=== PATIENT | female | born 1945 | race Caucasian/White ===

== ENCOUNTER → 2017-06-06 | Outpatient (CLI) | payer BC ==
[~2017-06-06] MED LIST: ANT25 PO; CHOL100010 PO; GLCSC750600 PO; MECL1TAB40 PO
== END ==
LOC: C.MAMM 15:01
PROVIDERS: ATTEND Family Medicine
DX: M81.0 Age-related osteoporosis without current pathological fracture (principal)

== ENCOUNTER 2017-09-01 13:28 | Emergency (ER) | payer BC ==
[~2017-09-01] VITALS: Ht 168.9 cm; Wt 73.2 kg
[~2017-09-01 13:28] MED LIST changes: +CEPH500T PO
[2017-09-01 13:32] VITALS: Ht 168.9 cm; Wt 73.2 kg
[2017-09-01] MEDS ORDERED: SODIUM CHLORIDE 0.9% 1000ML 1,000 ML IV STA (13:50)
[2017-09-01] MEDS ORDERED: DiphenhydrAMINE HCL 50 MG/ML VIAL IV STA (13:50)
--- NOTE | 2017-09-01 13:57 | EMERGENCY ROOM VISIT NOTE ---
ED Visit Note First contact with patient: 13:40 I have seen and examined this patient with Linnea Caal and generally agree with the treatment plan as discussed. Problem List Medical Problems: (1) Benign paroxysmal positional vertigo Status: Chronic (2) Epistaxis Status: Resolved (3) Facial contusion Status: Resolved (4) Facial contusion Status: Resolved (5) Laceration of finger of left hand Status: Resolved (6) Laceration of nose Status: Resolved (7) Nasal contusion Status: Resolved (8) Vertigo Status: Resolved Surgical Problems: (1) S/P cholecystectomy Status: Resolved Current/Historical Medications Scheduled Cholecalciferol (Vitamin D), 1,000 INTER.UNIT PO DAILY Glucosamine-Chondroitin (Glucosamine/Chondroitin), 2 CAP PO DAILY Scheduled PRN Meclizine HCl (Meclizine HCl), 1-2 TAB PO Q6 PRN for Dizziness or Vertigo Meclizine HCl (Meclizine HCl), 12.5-25 MG PO Q6H PRN for Dizziness or Vertigo Allergies Coded Allergies: Dust (Verified Allergy, Unknown, `, 10/16/16) Sulfa Drugs (Verified Allergy, Unknown, 10/16/16) Vital Signs Date Time Temp Pulse Resp B/P (MAP) Pulse Ox O2 Delivery O2 Flow Rate FiO2 09/01/17 13:32 36.6 73 18 148/83 99 Room Air Laboratory Results Test 09/01/17 13:50 Departure Information Referrals No Doctor, Assigned (PCP) Patient Instructions My [facility]
[2017-09-01] MEDS ORDERED: CHOL2000 PO (14:11)
[2017-09-01] MEDS ORDERED: ASPI81TA28 PO (14:11)
[2017-09-01 14:22] VITALS: O2SAT 99
[2017-09-01 14:28] LABS: BASO % 0.2 %; BASO ABS # 0.01 K/uL (0-0.2); COMPLETE YES; EOS % 2.9 %; HEMATOCRIT 41.1 % (37-47); IG% 0.2 %; LYMPH % 24.8 %; LYMPH ABS # 1.35 K/uL (1.2-3.4); MEAN CELL VOLUME 94.3 fL (80-100); MEAN CORPUSCULAR HEMOGLOBIN 31.7 pg (25-34); MEAN CORPUSCULAR HGB CONC 33.6 g/dl (32-36); MEAN PLATELET VOLUME 12.1 fL (7.4-10.4); MONO % 7.5 %; NEUT % 64.4 %; PLATELET COUNT 157 K/uL (130-400); RED BLOOD COUNT 4.36 M/uL (4.2-5.4); WHITE BLOOD COUNT 5.44 K/uL (4.8-10.8)
[2017-09-01 14:36] LABS: BLOOD UREA NITROGEN 11 mg/dl (7-18); BUN/CREATININE RATIO 13.9 (10-20); CALCIUM 8.8 mg/dl (8.5-10.1); CARBON DIOXIDE 30 mmol/L (21-32); CHLORIDE 106 mmol/L (98-107); CREATININE 0.77 mg/dl (0.60-1.20); GLUCOSE 90 mg/dl (70-99); POTASSIUM 4.4 mmol/L (3.5-5.1); SODIUM 141 mmol/L (136-145)
[2017-09-01 14:37] LABS: C-REACTIVE PROTEIN < 0.29 mg/dl (0-0.29)
--- NOTE | 2017-09-01 14:43 | DIAGNOSTIC IMAGING REPORT ---
LEFT WRIST 4 VIEWS HISTORY: Left wrist swelling. cellulitis COMPARISON: None. FINDINGS: There is no fracture or dislocation. Dorsal soft tissue swelling. The bones are osteopenic. No radiopaque foreign bodies. No bony destruction to suggest osteomyelitis. IMPRESSION: Dorsal soft tissue swelling. No underlying bony destruction. Electronically signed by: Marvin Woodson M.D. 09/01/2017 2:42 PM Dictated Date/Time: 09/01/2017 2:40 PM
--- NOTE | 2017-09-01 14:50 | EMERGENCY ROOM VISIT NOTE ---
History First contact with patient: 13:40 Chief Complaint: SWELLING TO EXTREMITY Stated Complaint: SWELLING TO LEFT HAND History of Present Illness The patient is a 72 year old female who presents to the Emergency Room with complaints of left wrist redness, swelling, mild pain, and itching that started 2 days ago. Patient states about 2 weeks ago that she got a small burn on the top of her wrist. She states the burn formed a small scab that she picked off several days ago, and since that time has noticed some increased redness and irritation around the burn site. 2 days ago she went to an urgent care to be seen, she states that they started her on Keflex and topical bacitracin ointment , which she has been taking. She has had 4 doses of the Keflex. She states shortly after she started using the bacitracin, the area became increasingly red and swollen, and very itchy. She did take some Benadryl last night which seemed to improve her symptoms. She denies any significant pain to the wrist, streaking up the arm, swollen lymph nodes, fevers or chills, nausea or vomiting , loss of appetite, numbness or tingling of the extremity. Review of Systems A complete 10 point review of systems was reviewed with the patient with pertinent positives and negatives as per history of present illness. All else were negative. Past Medical/Surgical History Medical Problems: (1) Benign paroxysmal positional vertigo (2) Epistaxis (3) Facial contusion (4) Facial contusion (5) Laceration of finger of left hand (6) Laceration of nose (7) Nasal contusion (8) Vertigo Surgical Problems: (1) S/P cholecystectomy Family History Cancer Social History Smoking Status: Former Smoker Alcohol Use: occasionally Drug Use: none Marital Status: single Housing Status: lives alone Occupation Status: employed Current/Historical Medications Scheduled Aspirin (Aspirin Ec), 81 MG PO DAILY Cephalexin (Cephalexin), 1 TAB PO TID Cephalexin Monohydrate (Keflex), 500 MG PO QID Cholecalciferol (Vitamin D3), 1 CAP PO DAILY Doxycycline Hyclate (Vibramycin), 100 MG PO BID Gentamicin Sulfate (Topical) (Gentamicin Sulfate), 1 APPLN TOP BID Allergies Coded Allergies: Dust (Verified Allergy, Unknown, `, 09/01/17) Sulfa Drugs (Verified Allergy, Unknown, 09/01/17) Physical Exam Vital Signs Date Time Temp Pulse Resp B/P (MAP) Pulse Ox O2 Delivery O2 Flow Rate FiO2 09/01/17 17:56 36.6 60 16 141/77 100 09/01/17 17:45 60 16 141/77 100 Room Air 09/01/17 15:50 60 16 145/78 100 Room Air 09/01/17 15:21 71 18 141/79 99 Room Air 09/01/17 14:22 99 Room Air 09/01/17 13:32 36.6 73 18 148/83 99 Room Air Physical Exam CONSTITUTIONAL: No acute distress. Well appearing and well nourished. Alert and oriented X 4 with normal affect. HEENT: Normocephalic, atraumatic. Pupils equal, round and reactive to light, EOMI. TMs normal. Pharynx normal. NECK: Supple, full active range of motion without discomfort. RESPIRATORY: Clear to auscultation bilaterally with no wheezing, crackles, rhonchi or stridor. Equal expansion bilaterally. CARDIOVASCULAR: Regular rate and rhythm with no murmurs, rubs or gallops. Normal peripheral perfusion. No edema. GASTROINTESTINAL: Soft, nontender, nondistended. Bowel sounds present in all quadrants. MUSCULOSKELETAL: Full range of motion of all joints without discomfort. INTEGUMENTARY: The left dorsal wrist has a dime-sized circular scab with surrounding erythema, warm to touch, mildly swollen, nontender. No blisters noted. No drainage noted. No rash or other significant dermatologic conditions noted. NEUROLOGIC: Cranial nerves II-XII grossly intact. No focal neurologic deficits noted. Medical Decision & Procedures ER Provider Diagnostic Interpretation: LEFT WRIST 4 VIEWS HISTORY: Left wrist swelling. cellulitis COMPARISON: None. FINDINGS: There is no fracture or dislocation. Dorsal soft tissue swelling. The bones are osteopenic. No radiopaque foreign bodies. No bony destruction to suggest osteomyelitis. IMPRESSION: Dorsal soft tissue swelling. No underlying bony destruction. Laboratory Results 09/01/17 14:10 Red Blood Count 4.36, Mean Corpuscular Volume 94.3, Mean Corpuscular Hemoglobin 31.7, Mean Corpuscular Hemoglobin Concent 33.6, Mean Platelet Volume 12.1, Neutrophils (%) (Auto) 64.4, Lymphocytes (%) (Auto) 24.8, Monocytes (%) (Auto) 7.5, Eosinophils (%) (Auto) 2.9, Basophils (%) (Auto) 0.2, Neutrophils # (Auto) 3.50, Lymphocytes # (Auto) 1.35, Monocytes # (Auto) 0.41, Eosinophils # (Auto) 0.16, Basophils # (Auto) 0.01 09/01/17 14:10 Test 09/01/17 14:10 White Blood Count 5.44 K/uL (4.8-10.8) Red Blood Count 4.36 M/uL (4.2-5.4) Hemoglobin 13.8 g/dL (12.0-16.0) Hematocrit 41.1 % (37-47) Mean Corpuscular Volume 94.3 fL (80-100) Mean Corpuscular Hemoglobin 31.7 pg (25-34) Mean Corpuscular Hemoglobin Concent 33.6 g/dl (32-36) Platelet Count 157 K/uL (130-400) Mean Platelet Volume 12.1 fL (7.4-10.4) Neutrophils (%) (Auto) 64.4 % Lymphocytes (%) (Auto) 24.8 % Monocytes (%) (Auto) 7.5 % Eosinophils (%) (Auto) 2.9 % Basophils (%) (Auto) 0.2 % Neutrophils # (Auto) 3.50 K/uL (1.4-6.5) Lymphocytes # (Auto) 1.35 K/uL (1.2-3.4) Monocytes # (Auto) 0.41 K/uL (0.11-0.59) Eosinophils # (Auto) 0.16 K/uL (0-0.5) Basophils # (Auto) 0.01 K/uL (0-0.2) RDW Standard Deviation 44.1 fL (36.4-46.3) RDW Coefficient of Variation 12.7 % (11.5-14.5) Immature Granulocyte % (Auto) 0.2 % Immature Granulocyte # (Auto) 0.01 K/uL (0.00-0.02) Erythrocyte Sedimentation Rate 23 mm/hr (0-21) Anion Gap 5.0 mmol/L (3-11) Est Creatinine Clear Calc Drug Dose 69.3 ml/min Estimated GFR () 90.0 Estimated GFR (Non- 77.7 BUN/Creatinine Ratio 13.9 (10-20) Calcium Level 8.8 mg/dl (8.5-10.1) C-Reactive Protein < 0.29 mg/dl (0-0.29) Medications Administered Medications (Trade) Dose Ordered Sig/Salas Route Start Time Stop Time Status Last Admin Dose Admin Diphenhydramine HCl (Benadryl Inj) 50 mg NOW STAT IV 09/01/17 13:50 09/01/17 13:56 DC 09/01/17 14:17 50 MG Sodium Chloride 1,000 ml @ 999 mls/hr Q1H1M STAT IV 09/01/17 13:50 09/01/17 14:50 DC 09/01/17 13:50 999 MLS/HR Ceftriaxone Sodium (Rocephin Inj) 1 gm NOW STAT IV 09/01/17 15:40 09/01/17 15:42 DC 09/01/17 15:50 1 GM Doxycycline Hyclate (Vibramycin Cap) 100 mg ONE ONCE PO 09/01/17 15:45 09/01/17 15:46 DC 09/01/17 16:49 100 MG Medical Decision CC: Patient presenting with complaint of left wrist swelling, redness Interpretation of Labs: No leukocytosis, no anemia, no significant joint abnormalities, normal renal function, normal inflammatory markers. Differential Diagnosis: Includes, but not limited to cellulitis, allergic reaction, joint infection, osteomyelitis, among others. Medication Reconciliation: I attest that I have personally reviewed the patient' s current medication list. Vital signs review: I reviewed the patient's vital signs and interpret them as follows: T: Afebrile; BP: Hypertensive; HR: Within normal limits; RR: Within normal limits; Pulse Ox: Within normal limits on room air. Blood pressure screening: The patient was found to have an elevated blood pressure and was referred to their primary doctor for recheck and further treatment. Summary: Patient was evaluated at bedside, history of physical exam performed. Patient is alert and oriented, in no acute distress and very pleasant, resting calmly in the stretcher. There is moderate erythema and induration of the left dorsal wrist that wraps around to the volar aspect of the wrist with a mild streaking appearance. The area is warm to touch, slightly tender. There is no fluctuance. Orders were placed at bedside for labs, IV fluids for hydration, IV Benadryl to address possible allergic reaction, x-ray of the wrist to evaluate for cellulitis and possible underlying osteomyelitis. Patient discussed with Dr. Lopez, who agrees with my assessment and plan. Labs reviewed as above, no acute abnormalities noted. X-ray reviewed, shows soft tissue swelling with no evidence of osteomyelitis. On reassessment after IV Benadryl, there is no significant improvement in the redness or swelling, and I am concerned that this may still represent a developing/spreading cellulitis. The patient was given a dose of IV Rocephin, as well as a dose of PO Bactrim. She was also instructed on increasing her dosing of Keflex to 4 times a day be discharged on Keflex and Bactrim for a full course of 10 days. Patient verbalized understanding of the treatment plan, and was comfortable with discharge home. Patient was instructed to follow closely with her PCP, and was given return precautions should her symptoms worsen, she verbalized understanding. Patient was discharged home in stable condition and ambulatory. Impression Primary Impression: Right forearm cellulitis Departure Information Dispostion Home / Self-Care Condition GOOD Prescriptions Gentamicin Sulfate (Topical) (GENTAMICIN SULFATE) 0.1 % Cre 1 APPLN TOP BID, #30 GM 1 Refill Prov: Linnea Caal CRNP 09/01/17 Doxycycline Hyclate (VIBRAMYCIN) 100 Mg Cap 100 MG PO BID for 10 Days, #19 CAP Prov: Linnea Caal CRNP 09/01/17 Cephalexin Monohydrate (Keflex) 500 Mg Cap 500 MG PO QID, #17 CAP Prov: Linnea Caal CRNP 09/01/17 Referrals Luisa Schaffer M.D. (PCP) Patient Instructions ED Infec Skin Cellulitis, My [facility] Additional Instructions You were seen in the Emergency Department for cellulitis. You have been prescribed Keflex and doxycycline to be taken for 10 days. Both of these medications are antibiotics. Continue the Keflex, taking it FOUR times a day until you have completed the medication. Take the doxycycline twice a day for the full 10 days. Stop these antibiotics and contact a medical provider if you were to develop any significant adverse side effects including: wheezing, shortness of breath, passing out, vomiting, or a diffuse rash. Always take antibiotics as directed and COMPLETE the ENTIRE course regardless of the improvement of your symptoms. You may use the gentamicin ointment applied topically to your wound twice a day. Look for signs of worsening infection of the wound including: increased pain, swelling, foul discharge, streaking, or fevers/chills/feeling ill. If any of these are noticed you should return to the Emergency Department for further assessment and treatment. For pain control, you can use the following [id number] medicines (if >12 yo): - Extra strength (500mg/tab) Tylenol (acetaminophen) 1-2 tabs every 6-8 hours as needed. Do not exceed 6 tablets in a 24 hour period. Avoid taking more than 3 grams (3000 mg) of Tylenol per day. This includes any other sources of acetaminophen you may take on a regular basis. - Regular strength (200 mg/tab) Advil (ibuprofen) 1-2 tabs every 4-6 hours as needed. Do not exceed a dose of 2400 mg per day. Apply warm compresses to the area to help with pain and also to help improve the infection. Follow up with your PCP or the wound clinic in the next few days for recheck, or sooner for worsening symptoms. Return to the emergency department if your symptoms worsen despite treatment course outlined above.
[2017-09-01] MEDS ORDERED: CEFTRIAXONE SOD INJ 1 GM ADDVIAL IV STA (15:40)
[2017-09-01] MEDS ORDERED: DOXY100C PO (15:45)
[2017-09-01] MEDS ORDERED: CEPH500C PO (15:45)
[2017-09-01] MEDS ORDERED: GENT0.1C2 TOP (15:45)
[2017-09-01] MEDS ORDERED: DOXYCYCLINE HYCLATE 100 MG CAP PO ONE (15:45)
[2017-09-01 17:56] VITALS: BP 141/77; PULSE 60; TEMP 36.6; O2SAT 100
== END 2017-09-01 17:57 | disposition home or self-care (01) ==
LOC: C.EDB 13:29 → C.EDA 17:57
DX: L03.113 Cellulitis of right upper limb (principal); Z87.828 Personal history of other (healed) physical injury and trauma; Z90.49 Acquired absence of other specified parts of digestive tract; Z87.891 Personal history of nicotine dependence; Z79.82 Long term (current) use of aspirin; Z79.899 Other long term (current) drug therapy; Z88.2 Allergy status to sulfonamides; Z91.09 Other allergy status, other than to drugs and biological substances; Z80.9 Family history of malignant neoplasm, unspecified

== ENCOUNTER 2017-09-03 09:54 | Emergency (ER) | payer BC ==
[~2017-09-03] VITALS: Ht 167.6 cm; Wt 71.7 kg
[~2017-09-03 09:54] MED LIST changes: -ANT25 PO; +ASPI81TA28 PO; +CEPH500C PO; -CHOL100010 PO; +CHOL2000 PO; +DOXY100C PO; +GENT0.1C2 TOP; -GLCSC750600 PO; -MECL1TAB40 PO
[2017-09-03 10:02] VITALS: TEMP 36.7; Ht 167.6 cm; Wt 71.7 kg
[2017-09-03] MEDS ORDERED: GI COCKTAIL PO STA (10:29)
[2017-09-03] MEDS ORDERED: ONDANSETRON 4MG OD TAB PO STA (10:29)
[2017-09-03] MEDS ORDERED: FAMOTIDINE 20 MG TAB PO ONE (10:30)
--- NOTE | 2017-09-03 10:37 | EMERGENCY ROOM VISIT NOTE ---
History Report prepared by Armaan: Alpa Vega Under the Supervision of: Dr. Rudolph Contreras M.D. First contact with patient: 10:05 Chief Complaint: NAUSEA Stated Complaint: NAUSEA CHILLS Nursing Triage Summary: "my stomach feels in knots and I have nausea. I'm on antibiotics for my hand cellulitis." per pt. History of Present Illness The patient is a 72 year old white female with a past medical history of BPPV who presents to the ED with a cc of nausea beginning in the middle of the night. The patient recently started taking doxycycline and Keflex for left hand cellulitis. She woke up last night with nausea. She did not take her antibiotics this morning. The patient had a small piece of an Cambodian muffin and drank a bottle of Serg water. She thinks that the carbonation in the water helped to alleviate some of her nausea. She had a normal BM this morning. Positive chills. Negative fevers, chest pain, vomiting, diarrhea. Pt denies recent trauma, travel, or camping. Pt denies sick contacts. She did have a flu shot this year. Source of History: patient Onset: last night Position: other (global) Quality: other (nausea) Timing: constant Modifying Factors (Relieving): drinking (carbonated water) Associated Symptoms: + chills, No fevers, No chest pain, No vomiting, No diarrhea Review of Systems See HPI for pertinent positives and negatives. A total of ten systems were reviewed and were otherwise negative. Past Medical & Surgical Medical Problems: (1) Benign paroxysmal positional vertigo (2) Epistaxis (3) Facial contusion (4) Facial contusion (5) Laceration of finger of left hand (6) Laceration of nose (7) Nasal contusion (8) Vertigo Surgical Problems: (1) S/P cholecystectomy Family History Cancer Social History Smoking Status: Former Smoker Alcohol Use: occasionally Drug Use: none Marital Status: single Housing Status: lives alone Occupation Status: employed Current/Historical Medications Scheduled Aspirin (Aspirin Ec), 81 MG PO DAILY Cephalexin Monohydrate (Keflex), 500 MG PO QID Doxycycline Hyclate (Vibramycin), 100 MG PO BID Famotidine (Pepcid), 40 MG PO QD Gentamicin Sulfate (Topical) (Gentamicin Sulfate), 1 APPLN TOP BID Ondasetron Odt (Zofran Odt), 4 MG SL Q6H Allergies Coded Allergies: Bacitracin (Unverified Allergy, Severe, BAD SWELLING OF SKIN, 09/03/17) Neomycin (Unverified Allergy, Severe, BAD SWELLING OF SKIN, 09/03/17) Polymyxin B (Unverified Allergy, Severe, BAD SWELLING OF SKIN, 09/03/17) Dust (Verified Allergy, Unknown, `, 09/03/17) Sulfa Drugs (Verified Allergy, Unknown, 09/03/17) Physical Exam Vital Signs Date Time Temp Pulse Resp B/P (MAP) Pulse Ox O2 Delivery O2 Flow Rate FiO2 09/03/17 11:27 76 20 157/84 100 09/03/17 10:02 36.7 69 18 159/74 97 Room Air Physical Exam GENERAL: Awake, alert, well-appearing, NAD HENT: Normocephalic, atraumatic. EYES: Normal conjunctiva. Sclera non-icteric. NECK: Supple. No nuchal rigidity. FROM. RESPIRATORY: CTAB, no rhonchi, wheezing, crackles CARDIAC: RRR, no MRG ABDOMEN: Soft, NTND, BS+, no CVA TTP MSK: No chest wall TTP, no LE edema. Pt does have a little redness to dorsal aspect of left distal forearm and over wrist and proximal hand, redness is improving from prior lines marked. NEURO: GCS 15, CN 2-12 intact, moves all 4s on command SKIN: No rash or jaundice noted. Medical Decision & Procedures Medications Administered Medications (Trade) Dose Ordered Sig/Salas Route Start Time Stop Time Status Last Admin Dose Admin Famotidine (Pepcid Tab) 20 mg NOW ONCE PO 09/03/17 10:30 09/03/17 10:31 DC 09/03/17 10:45 20 MG Ondansetron HCl (Zofran Odt) 4 mg NOW STAT PO 09/03/17 10:29 09/03/17 10:31 DC 09/03/17 10:44 4 MG Al Hydroxide/Mg Hydroxide (Maalox Susp) 30 ml STK-MED ONCE .ROUTE 09/03/17 10:42 09/03/17 10:43 DC 09/03/17 10:45 30 ML Lidocaine HCl (Viscous Lidocaine 2% Soln) 20 ml STK-MED ONCE .ROUTE 09/03/17 10:42 09/03/17 10:43 DC 09/03/17 10:46 20 ML ECG Indication: nausea Rate (beats per minute): 68 Rhythm: normal sinus Findings: no ectopy, other (T-wave flattening in lead 3; normal intervals; normal axis) Comparison ECG Date: 09/2016 Change: no significant change ED Course 1019: The patient was evaluated in room A10. A complete history and physical exam was performed. 1029: Zofran 4 mg PO, GI cocktail PO 1030: Pepcid 20 mg PO 1125: I reassessed the patient at this time. She is feeling better and resting comfortably. I discussed the results and treatment plan with the patient. I answered all pertaining questions that she had. She expressed understanding and verbalized agreement. The patient will be discharged home. Medical Decision The patient is a 72 year old white female with a past medical history of BPPV who presents to the ED with a cc of nausea beginning in the middle of the night. Differential diagnoses includes medication reaction, peptic ulcer disease, atypical chest pain. Patient was seen and evaluated at the bedside. Patient was complaining of some mild nausea. Patient denies any chest pain or shortness of breath. Patient has no medical problems. Patient was recently started on doxycycline, Keflex, and gentamicin ointment for some left upper extremity cellulitis which is improving. Patient has a fairly benign exam and has no tenderness to palpation in the epigastric or upper abdomen region or lower abdomen region patient has no vomiting. Patient states that she was able to tolerate some water in addition to a part of an Cambodian on this morning. Discussion with the patient we will obtain a screening EKG to ensure this is not atypical chest pain. This is most likely related from her antibiotic use. Patient was given medications and reassessed. Patient was feeling improved and her nausea had resolved. EKG did not show any acute ischemic changes. Less likely ACS or atypical chest pain. His most likely from her antibiotic use. Patient was told that she may take some Zofran as well as Zantac and/or Maalox and Tums. Patient was also told she may try probiotic and/or yogurt. Patient was given strict follow-up, discharge, and return precautions. Patient reported care patient was safely discharged home. Medication Reconcilliation Current Medication List: was personally reviewed by me Blood Pressure Screening Patient's blood pressure: Elevated blood pressure Blood pressure disposition: Elevated BP felt to be situational Impression Primary Impression: Nausea Scribe Attestation The scribe's documentation has been prepared under my direction and personally reviewed by me in its entirety. I confirm that the note above accurately reflects all work, treatment, procedures, and medical decision making performed by me. Departure Information Dispostion Home / Self-Care Prescriptions Ondasetron Odt (ZOFRAN ODT) 4 Mg Tab 4 MG SL Q6H for Nausea, #6 TAB Prov: Rudolph Conterras M.D. 09/03/17 Famotidine (PEPCID) 40 Mg Tab 40 MG PO QD for 30 Days, #30 TAB Prov: Rudolph Contreras M.D. 09/03/17 Referrals Luisa Schaffer M.D. (PCP) Forms HOME CARE DOCUMENTATION FORM, IMPORTANT VISIT INFORMATION Patient Instructions My [facility], Nausea Vomit Control Additional Instructions Please return to the emergency department if you have worsening or recurrent symptoms not amenable to at-home treatment. Please call for a follow-up appointment with her primary care physician. Please take your medications as prescribed. If you have other concerns and/or complaints please feel free to also call your primary care physician's office or return the ED for further evaluation, management, and treatment. You may try Maalox, pepcid, and/or tums. Consider yogurt and/or probiotic while you are taking the antibiotics. You have been examined and treated today on an emergency basis only. This is not a substitute for, or an effort to provide, complete comprehensive medical care. It is impossible to recognize and treat all injuries or illnesses in a single emergency department visit. It is therefore important that you follow up closely with [facility]. Call as soon as possible for an appointment. Thank you for your time and consideration. I look forward to speaking with you again soon. Please don't hesitate to call us if you have any questions.
[2017-09-03] MEDS ORDERED: LIDOCAINE HCL 2% VISC SOLN 20 ML UDC ONE (10:42)
[2017-09-03] MEDS ORDERED: ALUMINUM/MAGNESIUM SUSP 30 ML UDC ONE (10:42)
[2017-09-03 11:27] VITALS: BP 157/84; PULSE 76; O2SAT 100
[2017-09-03] MEDS ORDERED: FAMO40TA6 PO (11:31)
[2017-09-03] MEDS ORDERED: ONDA4TAB10 SL (11:31)
== END 2017-09-03 12:05 | disposition home or self-care (01) ==
LOC: C.EDB 09:55 → C.EDA 12:05
DX: R11.0 Nausea (principal); H81.10 Benign paroxysmal vertigo, unspecified ear; Z90.49 Acquired absence of other specified parts of digestive tract; Z80.9 Family history of malignant neoplasm, unspecified; Z87.891 Personal history of nicotine dependence; Z79.82 Long term (current) use of aspirin; Z79.899 Other long term (current) drug therapy

== ENCOUNTER → 2017-10-29 | Outpatient (CLI) | payer BC ==
[~2017-10-29] MED LIST changes: -CEPH500T PO; -CHOL2000 PO; -DOXY100C PO; +ONDA4TAB10 SL
--- NOTE | 2017-10-29 15:11 | MAMMOGRAPHY REPORT ---
BILATERAL DIGITAL SCREENING MAMMOGRAM WITH CAD: 10/29/2017 CLINICAL HISTORY: Routine screening. Patient has no complaints. TECHNIQUE: Bilateral CC and MLO views were obtained. Current study was also evaluated with a Compute r Aided Detection (CAD) system. COMPARISON: Comparison is made to exams dated: 09/07/2016 mammogram, 09/05/2015 mammogram, 4 mammogram, 09/01/2013 mammogram, 07/29/2012 mammogram, and 07/25/2012 mammogram - [facility]. BREAST COMPOSITION: The tissue of both breasts is almost entirely fatty. FINDINGS: There are scattered stable benign rim and punctate microcalcifications bilaterally. No maksim picious mass, architectural distortion or cluster of suspicious microcalcifications is seen. IMPRESSION: ACR BI-RADS CATEGORY 1: NEGATIVE There is no mammographic evidence of malignancy. A 1 year screening mammogram is recommended. The pa tient will receive written notification of the results. Approximately 10% of breast cancers are not detected with mammography. A negative mammographic report should not delay biopsy if a clinically suggestive mass is present. Merced Ramos M.D. ay/:10/29/2017 14:50:47 Emission Specialist: Siobhan Goodman, [facility] letter sent: Normal 1/2 BI-RADS Code: ACR BI-RADS Category 1: Negative
== END | disposition home or self-care (01) ==
LOC: C.MAMM 13:20
PROVIDERS: ATTEND Family Medicine
DX: Z12.31 Encounter for screening mammogram for malignant neoplasm of breast (principal)

== ENCOUNTER 2017-12-07 09:19 | Emergency (ER) | payer BC ==
[~2017-12-07] VITALS: Ht 167.6 cm; Wt 72.4 kg
[2017-12-07] MEDS ORDERED: OXYMETAZOLINE HCL 0.05% NA SPR 15 ML BTL ONE (09:25)
[2017-12-07 09:28] VITALS: TEMP 36.4; Ht 167.6 cm; Wt 72.4 kg
[2017-12-07] MEDS ORDERED: CHOL1000 PO (09:28)
--- NOTE | 2017-12-07 10:11 | EMERGENCY ROOM VISIT NOTE ---
ED Visit Note First contact with patient: 09:25 CHIEF COMPLAINT: Nosebleed HISTORY OF PRESENT ILLNESS: This is a 72-year-old female who presents to the emergency department with sudden onset of a left-sided nosebleed about 30 minutes ago. She states the bleeding started out the front of her nose, she tilted her head back and then the bleeding started to go down her throat. The bleeding has not stopped with pressure. There was no trauma to the nose. She reports recent URI symptoms of cough, congestion, nasal drainage, and states she has been blowing her nose a lot for the past 2 weeks. She takes a daily baby aspirin, but is not on any other blood thinners. No difficulty breathing, no cough, no headache, no vision changes, no dizziness or syncope, no neck pain or sore throat. REVIEW OF SYSTEMS: A complete 10 point review of systems was reviewed with the patient with pertinent positives and negatives as per history of present illness. All else were negative. PMH: The patient is healthy; there is no significant medical or surgical history. SOCIAL HISTORY: Patient lives at home. PHYSICAL EXAM: Vital Signs: Reviewed Nurse's notes. CONSTITUTIONAL: The patient is sitting upright holding the nose and is somewhat agitated. The patient is alert, oriented, coherent, and cooperative. There is no tachypnea or dyspnea. HEENT: Normocephalic, atraumatic. Pupils equal, round and reactive to light, EOMI. TMs normal. There is bloody drainage noted within the left naris, with a small erosion noted on the anterior septum, but appears to be the source of the bleeding. The right naris is patent and clear. Pharynx is not erythematous or swollen, there is a small amount of bloody drainage noted in the posterior oropharynx, no active draining blood noted. Moist mucous membranes. NECK: Supple, full active range of motion without discomfort. No cervical adenopathy. RESPIRATORY: Clear to auscultation bilaterally with no wheezing, crackles, rhonchi or stridor. Equal expansion bilaterally. CARDIOVASCULAR: Regular rate and rhythm with no murmurs, rubs or gallops. Normal peripheral perfusion. No edema. GASTROINTESTINAL: Soft, nontender, nondistended. No palpable masses or HSM. Bowel sounds present in all quadrants. MUSCULOSKELETAL: Full range of motion of all joints without discomfort. INTEGUMENTARY: No rash or other significant dermatologic conditions noted. NEUROLOGIC: Alert and oriented X 4 with normal affect. Cranial nerves II-XII grossly intact. No focal neurologic deficits noted. Normal strength and sensation in all 4 extremities. Normal speech. EMERGENCY DEPARTMENT COURSE: I examined the patient. Differential diagnosis includes anterior versus posterior epistaxis, nasal trauma, intranasal abrasion/ laceration, nasal foreign body, among others. Patient is alert and oriented, neurologic exam is normal with no focal deficits. Afrin spray was placed in the left naris and nose clamp applied by nursing prior to my assessment of the patient. After removal of the nose clamp, bleeding appears to have stopped. There is a small erosion on the left anterior septum that appears to be the source of the bleeding. I obtained verbal consent from the patient to perform the procedure. Let gel was applied with in the left nostril for anesthetic. Silver nitrate sticks were used to cauterize over the eroded tissue, with good hemostasis achieved. The patient tolerated the procedure well with no known complication. I discussed management and follow-up with the patient, as well as return precautions should her symptoms return or worsen, she verbalized understanding. The patient was discharged home in stable condition and ambulatory. Medication Reconciliation: I attest that I have personally reviewed the patient' s current medication list. Blood pressure screening: The patient was found to have an elevated blood pressure and was referred to their primary doctor for recheck and further treatment. I discussed the patient with Dr. Lopez, who also examined the patient and agrees my assessment and plan. Problem List Medical Problems: (1) Benign paroxysmal positional vertigo Status: Chronic (2) Epistaxis Status: Resolved (3) Facial contusion Status: Resolved (4) Facial contusion Status: Resolved (5) Laceration of finger of left hand Status: Resolved (6) Laceration of nose Status: Resolved (7) Nasal contusion Status: Resolved (8) Vertigo Status: Resolved Surgical Problems: (1) S/P cholecystectomy Status: Resolved Current/Historical Medications No Active Prescriptions or Reported Meds Allergies Coded Allergies: Bacitracin (Unverified Allergy, Severe, BAD SWELLING OF SKIN, 12/07/17) Neomycin (Unverified Allergy, Severe, BAD SWELLING OF SKIN, 12/07/17) Polymyxin B (Unverified Allergy, Severe, BAD SWELLING OF SKIN, 12/07/17) Gramicidin (Verified Allergy, Mild, RASH, 12/07/17) Dust (Verified Allergy, Unknown, `, 12/07/17) Sulfa Drugs (Verified Allergy, Unknown, 12/07/17) Vital Signs Date Time Temp Pulse Resp B/P (MAP) Pulse Ox O2 Delivery O2 Flow Rate FiO2 12/07/17 10:34 73 18 134/71 98 Room Air 12/07/17 09:28 36.4 78 18 147/64 97 Room Air Medications Administered Medications (Trade) Dose Ordered Sig/Salas Route Start Time Stop Time Status Last Admin Dose Admin Oxymetazoline HCl (Afrin 0.05% Nasal [place]) 75 sprays STK-MED ONCE .ROUTE 12/07/17 09:25 12/07/17 09:26 DC 12/07/17 09:25 75 SPRAYS Tetracaine/ Epinephrine/ Lidocaine (L.e.t. Gel 4%/ 1:100/0.5%) 1 ea UD STAT EXT 12/07/17 10:12 12/07/17 10:13 DC 12/07/17 10:26 1 EA Silver Nitrate/ Potassium Nitrate (Silver Nitrate Applicators) 1 appl NOW STAT EXT 12/07/17 10:45 12/07/17 10:46 DC 12/07/17 10:50 1 APPL Departure Information Impression Primary Impression: Epistaxis Dispostion Home / Self-Care Condition GOOD Prescriptions No Active Prescriptions or Reported Meds Referrals Luisa Schaffer M.D. (PCP) Patient Instructions ED Nosebleed, [facility] Additional Instructions You have been treated in the Emergency Department today for your Nose Bleed ( Epistaxis). Do NOT blow your nose for the next few days. This can result in recurrence of your nosebleed. If bleeding does recur, apply immediate direct pressure to your nose or use the provided clamps. Set the timer for 20 MINUTES and do not remove pressure for that full 20 minutes. If you are unable to get the bleeding to stop after a full 20 minutes of holding pressure, you should return to the emergency department for evaluation. You should consider using a humidifier in your room next to your bed to help moisten the air and decrease instances of nosebleeds. You can use hbme-lan-hnjxrit saline nasal sprays to help moisten the nasal mucosa and decrease instances of nosebleeds. As with any trip to the Emergency Department, you should follow-up with your Primary Care Provider from today's visit. Return to the emergency department if your symptoms persist despite treatment plan outlined above or if the following symptoms occur: uncontrollable nosebleed , dizziness, lightheadedness, passing out, severe headache, chest pain, shortness breath, or any other concerns.
[2017-12-07] MEDS ORDERED: LIDOCAINE/EPINEPH/TETRACAINE 1 EA SYR EXT STA (10:12)
[2017-12-07 10:34] VITALS: BP 134/71; PULSE 73; O2SAT 98
[2017-12-07] MEDS ORDERED: SILVER NITR/POTASSIUM NITRATE APPLICATOR EXT STA (10:45)
[2017-12-07] MEDS ORDERED: SILVER NITR/POTASSIUM NITRATE APPLICATOR ONE (10:46)
== END 2017-12-07 11:00 | disposition home or self-care (01) ==
LOC: EDBD 09:19 → C.EDB 09:20
DX: R04.0 Epistaxis (principal); Z79.82 Long term (current) use of aspirin

== ENCOUNTER 2018-06-30 12:14 | Emergency (ER) | payer BC ==
[~2018-06-30] VITALS: Ht 170.2 cm; Wt 70.9 kg
[2018-06-30 12:21] VITALS: TEMP 36.8; Ht 170.2 cm; Wt 70.9 kg
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
[2018-06-30 13:20] VITALS: BP 148/79; PULSE 78; O2SAT 98
== END 2018-06-30 13:20 | disposition home or self-care (01) ==
LOC: C.EDB 12:15 → C.EDD 13:20
DX: T24.122A Burn of first degree of left knee, initial encounter (principal); X12.XXXA Contact with other hot fluids, initial encounter; Z87.891 Personal history of nicotine dependence

== ENCOUNTER 2023-04-16 13:52 | Observation (INO) ==
[2023-04-16] MEDS ORDERED: SODIUM CHLORIDE 0.9% 1000ML 1,000 ML IV ONE (13:53)
[2023-04-16 14:48] LABS: Basophils # (auto) 0.01 K/uL (0-0.2); Basophils % (auto) 0.2 %; Eosinophils # (auto) 0.01 K/uL (0-0.50); Eosinophils % (auto) 0.2 %; Hematocrit (blood only) 41.2 % (37.0-47.0); Hemoglobin 13.5 g/dl (12.0-16.0); Immature Granulocytes # (auto) 0.01 K/uL (0.01-0.20); Immature Granulocytes % (auto) 0.2 %; Lymphocytes # (auto) 0.81 K/uL (1.2-3.4); Lymphocytes % (auto) 12.4 %; Mean Corpuscular Hemoglobin 30.6 pg (25.0-34.0); Mean Corpuscular Hgb Conc 32.8 g/dL (32.0-36.0); Mean Corpuscular Volume 93.4 fL (80.0-100.0); Mean Platelet Volume 12.1 fL (9.4-12.4); Monocytes # (auto) 0.66 K/uL (0.11-0.59); Monocytes % (auto) 10.1 %; Neutrophils # (auto) 5.02 K/uL (1.40-6.50); Neutrophils % (auto) 76.9 %; Platelet Count 137 K/uL (130-400); RDW Coefficient of Variation 11.7 % (11.5-14.5); Red Blood Count 4.41 M/uL (4.20-5.40); White Blood Count 6.52 K/ul (4.8-10.8)
[2023-04-16] MEDS ORDERED: OPTIRAY 320 100ml IV ONE (14:50)
--- NOTE | 2023-04-16 14:53 | Emergency Department Note ---
ED Visit Note Patient is a 77-year-old female who presents ER for above-stated complaint. IV was established blood work was obtained. Repeat abdominal exam was fairly unremarkable. She is still complaining of diffuse burning cramping pain in the mid lower abdomen but has improved since being treated earlier today. I saw the patient earlier today and labs show no significant leukocytosis or anemia. BMP along with LFTs bilirubin was unremarkable. CT of the abdomen pelvis was not obtained bc it was performed Saturday and was unremarkable. Initially reviewed the lipase at that time and thought it was 163 and discharged her. Upon final review of the chart when writing the note I missed read lipase and it was 1630 and consequently called the patient and told her to return to the ER. UA does suggest dehydration. She was given IV fluids. She has entero and rhinovirus. Upon presentation she was given IV fluids. She had already received IV Reglan earlier and said her belly is doing better. She was taken to CAT scan and CAT scan was performed and case was discussed with Dr. Arroyo for further evaluation management treatment. Please refer to my note earlier today for exam findings and complete work-up at that time. Patient denies any alcohol use. She was given IV fluids upon this presentation as well. .
[2023-04-16 15:02] LABS: Albumin Level 3.7 gm/dl (3.4-5.0); Bilirubin,Total 0.4 mg/dl (0.2-1.0); Calcium 8.6 mg/dl (8.6-10.3); Potassium 3.5 mmol/L (3.5-5.1)
--- NOTE | 2023-04-16 15:05 | CT Scan Report ---
CT SCAN OF THE ABDOMEN AND PELVIS WITH IV CONTRAST CLINICAL HISTORY: Generalized abdominal pain. Nausea and diarrhea. COMPARISON STUDY: Abdominal CT dated 04/13/2023. TECHNIQUE: Following the IV administration of 86 cc of Optiray 320, CT scan of the abdomen and pelvi s is performed from the lung bases to the proximal femora. Images are reviewed in the axial, sagittal , and coronal planes. IV contrast was administered without complication. A dose lowering technique wa s utilized adhering to the principles of ALARA. CT DOSE: 641.32 mGy.cm FINDINGS: Lung bases: The heart is normal in size and without pericardial effusion. The lung bases are clear. Liver: The contrast-enhanced liver is normal in size, contour, and attenuation. There is mild to mode rate intrahepatic biliary ductal dilatation. This is modestly increased from 04/13/2023. The hepatic v eins and portal veins are patent. Gallbladder: Surgically absent noting clips in the gallbladder fossa. Spleen: Normal in size and attenuation. Pancreas: There is minimal peripancreatic infiltration and fluid. The gland enhances throughout. The duct is normal in caliber. No peripancreatic fluid collection is identified. Adrenal glands: Unremarkable. Kidneys: The contrast enhanced kidneys are normal in size and without hydronephrosis. The kidneys enh ance symmetrically. Abdominal vasculature: The abdominal aorta is normal in course and caliber noting moderate to advance d atherosclerotic calcification. Bowel: There is mild to moderate sigmoid diverticulosis without CT evidence of acute diverticulitis. No bowel obstruction is seen. The appendix is well-visualized and normal. Peritoneum: There is trace free fluid in the cul-de-sac. No intraperitoneal free air is identified. Lymphadenopathy: None. Pelvic viscera: The bladder is normal as visualized. There are calcified uterine fibroids. No adnexal lesion is seen. Skeletal structures: The skeletal structures are osteopenic. There is a chronic compression deformity of L2. Mild lumbosacral spondylosis is observed. No lytic or blastic lesions are seen. IMPRESSION: 1. There is minimal peripancreatic infiltration and fluid. Correlate with clinical and laboratory fin dings for evidence of mild acute pancreatitis. 2. The gland enhances throughout. No peripancreatic fluid collection is seen. 3. There is wwod-dd-pkyafnsl intra and extrahepatic biliary ductal dilatation. This has modestly incr eased from 04/13/2023. Correlate with clinical and laboratory findings. 4. Additional findings as above. ACT 112: Negative or not required by law. Electronically signed by: Umair Hawkins M.D. 04/16/2023 3:04 PM
[2023-04-16 15:08] LABS: BUN Creatinine Ratio 19.2 (10-20); Creatinine Clr Calc Pharmacy 57.4 ml/min; Est GFR (African American) 85.6 ml/min; Est GFR (Non-African American) 73.8 ml/min
--- NOTE | 2023-04-16 15:08 | Emergency Department Note ---
Impression & Plan Acute pancreatitis, Abdominal pain, Vomiting, Diarrhea ED Provider Note NAME: RAMIN ALLEN AGE: 77 SEX: F : 1945 ARRIVES VIA: Walk-In INFORMANT: Patient ED PROVIDER(S): Hernandez Barfield DO CHIEF COMPLAINT: N/V/D HPI: Patient is a 77-year-old female who presents ER for nausea vomiting and diarrhea which has been going on since Saturday. She was seen here earlier tod ay and discharged following work-up. She notes her symptoms have been present since Saturday. She has been having profuse diarrhea. Intermittent vomiting. She has not been able to keep anything down. She describes as diffuse crampy pain and burning pain throughout her whole stomach. Patient denies drinking alcohol. She does have a history of a cholecystectomy. PAST MEDICAL HISTORY:See Below PAST SURGICAL HISTORY:See Below FAMILY HISTORY:See Below SOCIAL HISTORY:See Below HOME MEDICATIONS:See Below ALLERGIES:See Below VITALS:See Below PHYSICAL EXAMINATION: GENERAL: Sitting up in bed, alert, well appearing, well nourished, no distress, non-toxic EYE EXAM: normal conjunctiva. OROPHARYNX:mucous membranes are moist LUNGS: Clear to auscultation. Normal chest wall mechanics HEART: no murmurs, S1 normal and S2 normal ABDOMEN: abdomen soft, non-tender, normo-active bowel sounds, no masses, no rebound or guarding. UPPER EXTREMITIES: upper extremities are grossly normal. LOWER EXTREMITIES: No pitting edema. NEURO EXAM: Normal sensorium, cranial nerves II-XII grossly intact, normal speech, no gross weakness of arms, no gross weakness of legs. MEDICAL DECISION MAKING: Patient is a 77-year-old female who presents ER for above-stated complaint. IV was established blood work was obtained. Repeat abdominal exam was fairly unremarkable. She is still complaining of diffuse burning cramping pain in the mid lower abdomen but has improved since being treated earlier today. I saw the patient earlier today and labs show no significant leukocytosis or anemia. BMP along with LFTs bilirubin was unremarkable. CT of the abdomen pelvis was not obtained bc it was performed Saturday and was unremarkable. Initially reviewed the lipase at that time and thought it was 163 and discharged her. Upon final review of the chart when writing the note I missed read lipase and it was 1630 and consequently called the patient and told her to return to the ER. UA does suggest dehydration. She was given IV fluids. She has entero and rhinovirus. Upon presentation she was given IV fluids. She had already received IV Reglan earlier and said her belly is doing better. She was taken to CAT scan and case was discussed with Dr. Leal for further evaluation management treatment. Alden navarro denies any alcohol use. She was given IV fluids upon this presentation as well. Triage Nursing notes reviewed. Limited review of prior medical records performed Vital Signs: reviewed and remarkable for no significant abnormalities Differential diagnosis: Differential diagnoses includes but is not limited to gastritis, peptic ulcer disease, GERD, gallbladder disease, pancreatitis, small bowel obstruction, appendicitis, diverticulitis, hernia, urinary tract infection, torsion, perforation, trauma, infectious. ER treatment provided: See below Diagnostics interpreted by me include EKG and cardiac monitoring as listed below: -Cardiac Monitoring: An order was placed for continuous cardiac monitoring. The monitor shows a rate of 70 with sinus rhythm. -Laboratory studies:Interpreted by me as stated above in MDM and shown below. Imaging studies: Xrays: As interpreted by me:none CTs show: CT abdomen pelvis shows acute pancreatitis Consultation(s): Discussed with Dr. Mark Leal for further evaluation management treatment Procedures:none Critical Care: None Past Med/Surg History Medical History Benign paroxysmal positional vertigo (04/15/13) originally thought it was a TIA; hx-had testing in [place], "does not have this, had vestibular neuritis" History of COVID-19 04/21/2022, home test and pcr [place], not hosp; sore throat, nasal congestion>resolved Hx of osteoporosis Surgical History H/O adenoidectomy H/O myomectomy History of cholecystectomy History of esophagogastroduodenoscopy (EGD) History of left cataract surgery Hx of umbilical hernia repair S/P anal fissurectomy WITH SPHINCTEROTOMY S/P colonoscopy S/P tonsillectomy Status post hip surgery fatty tumors removed from near hip Status post repair of nerve sciatic nerve-GHS, had fatty tumors removed that were constricting the nerve. Family History Mother Breast cancer Father Lung cancer Other Cancer No pertinent family history Denies family history of Ovarian cancer Colorectal cancer Social History Smoking Status: Former smoker Age Started Using Tobacco: 22; Age Quit Using Tobacco: 37; Second Hand Exposure: Yes (as a child); Do You Dip or Chew Tobacco: No; Hx Alcohol Use: Yes Alcohol type: other Hx Substance Use: No Preferred Language: Tuvaluan Communication Ability: Effective Homeopathic Doctor Required: No Beliefs That Will Affect Care: None Current Living Situation: Alone current occupational status: retired Feels Safe at Home: Yes Assistive Devices: Glasses Allergies Allergies Allergy/AdvReac Type Severity Reaction Status Date / Time bacitracin Allergy Intermediate BAD Verified 04/13/23 19:45 SWELLING OF SKIN gramicidin D Allergy Intermediate RASH Verified 04/13/23 19:45 neomycin Allergy Intermediate BAD Verified 04/13/23 19:45 SWELLING OF SKIN polymyxin B Allergy Intermediate BAD Verified 04/13/23 19:45 SWELLING OF SKIN Sulfa (Sulfonamide Allergy Unknown CAN'T Verified 04/13/23 19:45 Antibiotics) REMEMBER Home Meds Home Medications Medication Instructions Recorded Confirmed fluticasone propionate 50 2 spray intranasal QAM PRN 05/08/19 04/13/23 mcg/actuation nasal Congestion spray,suspension (Flonase Allergy Relief) cholecalciferol (vitamin D3) 50 100 mcg PO QAM 12/05/21 04/13/23 mcg (2,000 unit) capsule (Vitamin D3) cyanocobalamin (vitamin B-12) 3,000 mcg PO QAM 12/05/21 04/13/23 1,000 mcg tablet (Vitamin B-12) diphenhydramine HCl 25 mg capsule 25 mg PO DIRECTED PRN Congestion 12/05/21 04/13/23 (Benadryl) ibuprofen 200 mg tablet (Advil) 600 mg PO DIRECTED PRN Pain 12/05/21 04/13/23 biotin 5 mg capsule 5 mg PO QAM 03/07/22 04/13/23 magnesium citrate 100 mg tablet 100 mg PO HS PRN muscle relaxation 03/07/22 04/13/23 Previous Rx's Medication Instructions Recorded ondansetron 4 mg disintegrating 4 mg PO Q8H PRN nausea and 04/13/23 tablet vomiting #30 tabs ondansetron HCl 4 mg tablet 4 mg PO Q8H PRN nausea and 04/16/23 vomiting 5 days #15 tabs Results & Data (ED) Vital Signs Vital Signs - 24 hr 04/16/23 13:58 Temperature 36.7 C Temperature Source Temporal Artery Scan Pulse Rate 72 Respiratory Rate 20 Respiratory Effort / Characteristics Non-Labored Spontaneous Respiratory Depth Normal Blood Pressure 124/60 Blood Pressure Mean 81 Pulse Oximetry 95 Oxygen Delivery Method Room Air Sepsis New/Unexplained Change in Mental Status N/A Sepsis Action Taken by Nursing No Action Required Laboratory Data 04/16/23 14:20 04/16/23 14:20 Lab Results 04/16/23 04/16/23 Range/Units 14:20 14:20 WBC 6.52 (4.8-10.8) K/ul RBC 4.41 (4.20-5.40) M/uL Hgb 13.5 (12.0-16.0) g/dl Hct 41.2 (37.0-47.0) % MCV 93.4 (80.0-100.0) fL MCH 30.6 (25.0-34.0) pg MCHC 32.8 (32.0-36.0) g/dL RDW Std Deviation 40.0 (36.4-46.3) fL RDW Coeff of Michel 11.7 (11.5-14.5) % Plt Count 137 (130-400) K/uL MPV 12.1 (9.4-12.4) fL Immature Gran % (Auto) 0.2 % Neut % (Auto) 76.9 % Lymph % (Auto) 12.4 % [place] % (Auto) 10.1 % Eos % (Auto) 0.2 % Baso % (Auto) 0.2 % Neut # (Auto) 5.02 (1.40-6.50) K/uL Lymph # (Auto) 0.81 L (1.2-3.4) K/uL [place] # (Auto) 0.66 H (0.11-0.59) K/uL Eos # (Auto) 0.01 (0-0.50) K/uL Baso # (Auto) 0.01 (0-0.2) K/uL Immature Gran # (Auto) 0.01 (0.01-0.20) K/uL Sodium 136 (136-145) mmol/L Potassium 3.5 (3.5-5.1) mmol/L Chloride 103 (98-107) mmol/L Carbon Dioxide 21 (21-32) mmol/L Anion Gap 12 H (3-11) Calcium 8.6 (8.6-10.3) mg/dl Total Bilirubin 0.4 (0.2-1.0) mg/dl Albumin 3.7 (3.4-5.0) gm/dl Administered Medications Discontinued Medications Sodium Chloride (Nss 1000ml) 1,000 mls @ 999 mls/hr IV .Q1H1M ONE Stop: 04/16/23 14:53 Last Admin: 04/16/23 14:58 Dose: 999 mls/hr Documented By: MILES Ioversol (Optiray 320 100ml) 86 ml IV ONCE ONE Stop: 04/16/23 14:51 Last Admin: 04/16/23 14:37 Dose: 86 ml Documented By: STACY Discharge Plan Visit Data Chief Complaint: Referred by Doctor Stated Complaint: DOCTOR RECOMMENDED ED Provider: Hernandez Barfield Discharge Problem: Acute pancreatitis, Abdominal pain, Vomiting, Diarrhea Forms Stand Alone Forms: [facility] Prescriptions Prescriptions: No Action biotin 5 mg capsule 5 mg PO QAM magnesium citrate 100 mg tablet 100 mg PO HS PRN (Reason: muscle relaxation) fluticasone propionate [Flonase Allergy Relief] 50 mcg/actuation [place],Suspension 2 spray INTRANASAL QAM PRN (Reason: Congestion) cyanocobalamin (vitamin B-12) [Vitamin B-12] 1,000 mcg Tablet 3,000 mcg PO QAM diphenhydramine HCl [Benadryl] 25 mg Capsule 25 mg PO DIRECTED PRN (Reason: Congestion) ibuprofen [Advil] 200 mg Tablet 600 mg PO DIRECTED PRN (Reason: Pain) cholecalciferol (vitamin D3) [Vitamin D3] 50 mcg (2,000 unit) Capsule 100 mcg PO QAM ondansetron 4 mg tablet,disintegrating 4 mg PO Q8H PRN (Reason: nausea and vomiting) Qty: 30 0RF ondansetron HCl 4 mg tablet 4 mg PO Q8H PRN (Reason: nausea and vomiting) 5 Days Qty: 15 0RF Referrals Referrals: Luisa Schaffer MD [Primary Care Provider] -
[2023-04-16 15:29] LABS: Albumin Globulin Ratio 1.2 (0.9-2); Globulin 3.2 gm/dl (2.5-4.0); Total Protein 6.9 gm/dl (6.0-8.3)
--- NOTE | 2023-04-16 15:57 | History & Physical Report ---
Date of Service April 16, 2023 Assessment & Plan (1) Pancreatitis: Plan: Abdominal pain 2/2 acute pancreatitis, suspect viral illness Patient rarely drinks alcohol no, no use in the last month Calcium is normal S/p cholecystectomy 1999 with no problems between then and now. On CT she does show signs of some intra and extrahepatic ductal dilation, but has no transaminitis or elevated bilirubin. CT does show evidence of mild acute pancreatitis. No obvious masses/obstruction. CMP trended Lipase is elevated at 1166 We will continue IV FM, pain control, antiemetics. May have clears as tolerated, hold if worsens pain or advance as tolerated if improving Prodrome of diarrhea suggestive of viral illness especially with exposure to young children who had similar symptoms just prior to hers, respiratory bio fire is positive for adeno/rhinovirus. As diarrhea is improving and patient is starting to improve will defer BioFire at this time. No leukocytosis, no fever/chills. No antibiotics indicated at this time LR 120 cc 1 additional bag, extend if not tolerating clears Mild anxiety Rarely uses home lorazepam, may continue daily as needed as needed for anxiety DVT prophylaxis: Lovenox Disposition: Medical surgical CODE STATUS: DNR Diet: Clears, hold if pain with meals, advance as tolerated if doing well in the morning (2) Acute viral syndrome: History of Present Illness Primary Care Provider: Luisa Schaffer MD Debbie is a 77-year-old female with a past medical history of CVA, laryngeal pharyngeal reflux, chronic cerebral ischemia, COVID, and past cholecystectomy who presented for evaluation of abdominal pain. She is found to have an elevated lipase and evidence of pancreatitis on CT. She does not use alcohol, and has a normal calcium on admission Pain started last saturday. +nausea, diarrhea x2 days, headache, vomiting with green bile. No blood/melena. Diarrhea was loose then liquid, and improved yesterday with 1 dose of immodium. Poor appetite, has not been able to eat for 3-4 days. Was around a 10yo last who had stomach problems/diarrhea. Her symptoms started a day or so after that. She has had stomach rumbling and discomfort along with this. She has no chest pain or chest pressure. No shortness of breath. No inspiratory pain. No abdominal swelling. No lower extremity swelling. No lightheadedness, dizziness, syncope, presyncope. Denies fever/chills/sweats. Feels that her diarrhea is improving today, but she continues to have some pain in her stomach. She notes that while she has not been able to eat 3 to 4 days she is actually hungry at time of presentation. She notes she did have a cholecystectomy in 1999, she presented for stones blocking her pancreas/gallbladder at that time. No problems since then. Medical History: Reviewed Medications: Reviewed. No daily medicines. Vitamins. Rarely uses lorazepam. Surgical History: Reviewed Family history: Reviewed Allergies: Reviewed Social History: No tobacco product use. Rare champagne use, none in the last month. Code Status: Full Code Allergies Allergy/AdvReac Type Severity Reaction Status Date / Time bacitracin Allergy Intermediate BAD Verified 04/13/23 19:45 SWELLING OF SKIN gramicidin D Allergy Intermediate RASH Verified 04/13/23 19:45 neomycin Allergy Intermediate BAD Verified 04/13/23 19:45 SWELLING OF SKIN polymyxin B Allergy Intermediate BAD Verified 04/13/23 19:45 SWELLING OF SKIN Sulfa (Sulfonamide Allergy Unknown CAN'T Verified 04/13/23 19:45 Antibiotics) REMEMBER Home Medications Medication Instructions Recorded Confirmed Type fluticasone propionate 50 2 spray intranasal QAM PRN 05/08/19 04/13/23 History mcg/actuation nasal Congestion spray,suspension (Flonase Allergy Relief) cholecalciferol (vitamin D3) 50 100 mcg PO QAM 12/05/21 04/13/23 History mcg (2,000 unit) capsule (Vitamin D3) cyanocobalamin (vitamin B-12) 3,000 mcg PO QAM 12/05/21 04/13/23 History 1,000 mcg tablet (Vitamin B-12) diphenhydramine HCl 25 mg capsule 25 mg PO DIRECTED PRN Congestion 12/05/21 04/13/23 History (Benadryl) ibuprofen 200 mg tablet (Advil) 600 mg PO DIRECTED PRN Pain 12/05/21 04/13/23 History biotin 5 mg capsule 5 mg PO QAM 03/07/22 04/13/23 History magnesium citrate 100 mg tablet 100 mg PO HS PRN muscle relaxation 03/07/22 04/13/23 History lorazepam 0.5 mg tablet 0.5 mg PO DAILY PRN Anxiety 04/16/23 04/16/23 History ondansetron HCl 4 mg tablet 4 mg PO Q8H PRN nausea and 04/16/23 Rx vomiting 5 days #15 tabs Past Med/Surg History Medical History Benign paroxysmal positional vertigo (04/15/13) originally thought it was a TIA; hx-had testing in [place], "does not have this, had vestibular neuritis" History of COVID-19 04/21/2022, home test and pcr [place], not hosp; sore throat, nasal congestion>resolved Hx of osteoporosis Surgical History H/O adenoidectomy H/O myomectomy History of cholecystectomy History of esophagogastroduodenoscopy (EGD) History of left cataract surgery Hx of umbilical hernia repair S/P anal fissurectomy WITH SPHINCTEROTOMY S/P colonoscopy S/P tonsillectomy Status post hip surgery fatty tumors removed from near hip Status post repair of nerve sciatic nerve-GHS, had fatty tumors removed that were constricting the nerve. Family History Mother Breast cancer Father Lung cancer Other Cancer No pertinent family history Denies family history of Ovarian cancer Colorectal cancer Social History Smoking Status: Former smoker Age Started Using Tobacco: 22; Age Quit Using Tobacco: 37; Second Hand Exposure: Yes (as a child); Do You Dip or Chew Tobacco: No; Hx Alcohol Use: Yes Alcohol type: other Hx Substance Use: No Preferred Language: Latvian Communication Ability: Effective Slot Shift Supervisor Required: No Beliefs That Will Affect Care: None Current Living Situation: Alone current occupational status: retired Feels Safe at Home: Yes Assistive Devices: Glasses Review of Systems Review of Systems: All systems reviewed & are unremarkable except as noted in HPI & below Physical Exam Physical Exam: General: A&Ox3. NAD. Cooperative. HEENT: Atraumatic, normocephalic. Vision/hearing intact Pulm: CTAB A&P. -wheezes, -rales, -rhonchi. Symmetrical chest rise. No increased work of breathing. No respiratory distress. Cardiac: RRR, -mrg. Radial pulses intact and symmetrical. Abdominal: Mild epigastric tenderness without rebound. Abdomen otherwise soft and nontender Extremities: Warm and dry Results & Data Results & Data Vital Signs (Past 12 Hours) Vital Signs Temp Pulse Resp BP Pulse Ox O2 Del Method 04/16/23 13:58 36.7 C 72 20 124/60 95 Room Air PG Care Time/CCT Total # of Minutes Spent Total Time Spent with Patient: Total time spent is greater than 50% in coordination of care (as documented) at patient's floor/unit and/or counseling patient: Coding Level of Care Code 18569 INT INP/OBS CARE 2/55MIN Diagnoses Pancreatitis K85.90 Acute viral syndrome B34.9
[2023-04-16] MEDS ORDERED: HYDROmorphone INJ 0.5 MG/0.5 ML SYR IV PRN (16:24)
[2023-04-16] MEDS ORDERED: ONDANSETRON INJ 2 MG/ML 2 ML VIAL IV PRN (18:51)
[2023-04-16] MEDS ORDERED: LORazepam 0.5 MG TAB PO PRN (18:51)
[2023-04-16] MEDS ORDERED: ACETAMINOPHEN 325 MG TAB PO PRN (18:51)
[2023-04-16] MEDS: LACTATED RINGER'S 1,000 ML IV SCH (20:00)
[2023-04-16] MEDS ORDERED: ENOXAPARIN INJ 40 MG/0.4 ML SYR SQ SCH (21:00)
[2023-04-17] MEDS: LACTATED RINGER'S 1,000 ML IV SCH (04:18)
[2023-04-17] MEDS ORDERED: IBUPROFEN 600 MG TAB PO PRN (04:28)
[2023-04-17 08:09] LABS: Basophils # (auto) 0.02 K/uL (0-0.2); Basophils % (auto) 0.4 %; Eosinophils # (auto) 0.05 K/uL (0-0.50); Eosinophils % (auto) 0.9 %; Hematocrit (blood only) 34.4 % (37.0-47.0); Hemoglobin 11.6 g/dl (12.0-16.0); Immature Granulocytes # (auto) 0.02 K/uL (0.01-0.20); Immature Granulocytes % (auto) 0.4 %; Lymphocytes % (auto) 19.9 %; Mean Corpuscular Hemoglobin 31.6 pg (25.0-34.0); Mean Corpuscular Hgb Conc 33.7 g/dL (32.0-36.0); Mean Corpuscular Volume 93.7 fL (80.0-100.0); Monocytes # (auto) 0.58 K/uL (0.11-0.59); Monocytes % (auto) 10.5 %; Neutrophils # (auto) 3.77 K/uL (1.40-6.50); Neutrophils % (auto) 67.9 %; Platelet Count 119 K/uL (130-400); RDW Coefficient of Variation 11.9 % (11.5-14.5); RDW Standard Deviation 40.8 fL (36.4-46.3); Red Blood Count 3.67 M/uL (4.20-5.40); White Blood Count 5.54 K/ul (4.8-10.8)
[2023-04-17 08:22] LABS: Bilirubin,Total 0.3 mg/dl (0.2-1.0); Calcium 8.4 mg/dl (8.6-10.3); Potassium 3.8 mmol/L (3.5-5.1)
[2023-04-17 08:28] LABS: Albumin Globulin Ratio 1.1 (0.9-2); BUN Creatinine Ratio 17.4 (10-20); Creatinine Clr Calc Pharmacy 64.9 ml/min; Est GFR (Non-African American) 84.6 ml/min; Globulin 2.7 gm/dl (2.5-4.0); Total Protein 5.7 gm/dl (6.0-8.3)
--- NOTE | 2023-04-17 08:43 | Hospitalist Progress Note ---
Date of Service April 17, 2023 Assessment & Plan (1) Pancreatitis: Plan: Abdominal pain 2/2 acute pancreatitis, suspect viral illness Patient rarely drinks alcohol no, no use in the last month Calcium is normal S/p cholecystectomy 1999 with no problems between then and now. On CT she does show signs of some intra and extrahepatic ductal dilation, but has no transaminitis or elevated bilirubin. CT does show evidence of mild acute pancreatitis. No obvious masses/obstruction. CMP trended Lipase is elevated at 1166 We will continue IV FM, pain control, antiemetics. May have clears as tolerated, hold if worsens pain or advance as tolerated if improving Prodrome of diarrhea suggestive of viral illness especially with exposure to young children who had similar symptoms just prior to hers, respiratory bio fire is positive for adeno/rhinovirus. As diarrhea is improving and patient is starting to improve will defer BioFire at this time. No leukocytosis, no fever/chills. No antibiotics indicated at this time LR 120 cc 1 additional bag, extend if not tolerating clears Mild anxiety Rarely uses home lorazepam, may continue daily as needed as needed for anxiety DVT prophylaxis: Lovenox Disposition: Medical surgical CODE STATUS: DNR Diet: Clears, hold if pain with meals, advance as tolerated if doing well in the morning 04/17 --> doing well, no abd pain. advanced to full liquid for lunch. if tolerates, considering advancement for low fat diet at supper and discharge if keeping up with oral intake LFTs wnl, no elevation. No fever (2) Acute viral syndrome: Plan: +rhino/enterovirus, has been having diarrhea, sick contacts diarrhea slowing contact precautions supportive care Admission and Anticipated Discharge Date Admission Date: April 16, 2023 Subjective eval this morning, feeling well. no further burning sensation but feeling belly grumble. no further diarrhea and reports she has not yet had bowel movement. hungry for advancement of diet. NO abdominal pain and discussed will advance to full liquids for lunch. Discussed slow advancement but she is hopeful for advancement to low fat diet for supper and possible discharge. Will see how she tolerates PO intake and discuss with supervising provider about possible d/c after supper tonight. She reports her home has been the [employer]. Supper around last Saturday with two children and sent home sick from school on Saturday, suspects this is where she picked this up. Discussed handwashing hygiene/etc. Questions/concerns addressed at this time. Results & Data Results & Data Vital Signs (Past 12 Hours) Vital Signs Temp Pulse Pulse Resp BP Pulse Ox O2 Del Method 04/17/23 08:00 Room Air 04/17/23 07:16 36.8 C 67 16 109/64 97 Room Air 04/16/23 22:50 37 C 68 18 108/67 97 Room Air Laboratory Results 04/17/23 04/17/23 04/16/23 Range/Units 07:48 07:48 14:20 WBC 5.54 (4.8-10.8) K/ul RBC 3.67 L (4.20-5.40) M/uL Hgb 11.6 L (12.0-16.0) g/dl Hct 34.4 L (37.0-47.0) % MCV 93.7 (80.0-100.0) fL MCH 31.6 (25.0-34.0) pg MCHC 33.7 (32.0-36.0) g/dL RDW Std Deviation 40.8 (36.4-46.3) fL RDW Coeff of Michel 11.9 (11.5-14.5) % Plt Count 119 L (130-400) K/uL MPV 12.0 (9.4-12.4) fL Immature Gran % (Auto) 0.4 % Neut % (Auto) 67.9 % Lymph % (Auto) 19.9 % [place] % (Auto) 10.5 % Eos % (Auto) 0.9 % Baso % (Auto) 0.4 % Neut # (Auto) 3.77 (1.40-6.50) K/uL Lymph # (Auto) 1.10 L (1.2-3.4) K/uL [place] # (Auto) 0.58 (0.11-0.59) K/uL Eos # (Auto) 0.05 (0-0.50) K/uL Baso # (Auto) 0.02 (0-0.2) K/uL Immature Gran # (Auto) 0.02 (0.01-0.20) K/uL Sodium 137 (136-145) mmol/L Potassium 3.8 (3.5-5.1) mmol/L Chloride 106 (98-107) mmol/L Carbon Dioxide 24 (21-32) mmol/L Anion Gap 7 (3-11) BUN 12 (6-23) mg/dl Creatinine 0.69 (0.6-1.2) mg/dl Est Cr Clr Drug Dosing 64.9 ml/min Est GFR ( Amer) 98.0 ml/min Est GFR (Non-Af Amer) 84.6 ml/min BUN/Creatinine Ratio 17.4 (10-20) Glucose 70 (70-99(Fasting)) mg/dl Calcium 8.4 L (8.6-10.3) mg/dl Total Bilirubin 0.3 (0.2-1.0) mg/dl AST 22 (13-39) U/L ALT 13 (7-52) U/L Alkaline Phosphatase 57 (34-104) U/L Total Protein 5.7 L (6.0-8.3) gm/dl Albumin 3.0 L (3.4-5.0) gm/dl Globulin 2.7 (2.5-4.0) gm/dl Albumin/Globulin Ratio 1.1 (0.9-2) Lipase (11-82) U/L SARS-CoV-2, RNA, NAAT NEGATIVE (NEGATIVE) 04/16/23 04/16/23 Range/Units 14:20 14:20 WBC 6.52 (4.8-10.8) K/ul RBC 4.41 (4.20-5.40) M/uL Hgb 13.5 (12.0-16.0) g/dl Hct 41.2 (37.0-47.0) % MCV 93.4 (80.0-100.0) fL MCH 30.6 (25.0-34.0) pg MCHC 32.8 (32.0-36.0) g/dL RDW Std Deviation 40.0 (36.4-46.3) fL RDW Coeff of Michel 11.7 (11.5-14.5) % Plt Count 137 (130-400) K/uL MPV 12.1 (9.4-12.4) fL Immature Gran % (Auto) 0.2 % Neut % (Auto) 76.9 % Lymph % (Auto) 12.4 % [place] % (Auto) 10.1 % Eos % (Auto) 0.2 % Baso % (Auto) 0.2 % Neut # (Auto) 5.02 (1.40-6.50) K/uL Lymph # (Auto) 0.81 L (1.2-3.4) K/uL [place] # (Auto) 0.66 H (0.11-0.59) K/uL Eos # (Auto) 0.01 (0-0.50) K/uL Baso # (Auto) 0.01 (0-0.2) K/uL Immature Gran # (Auto) 0.01 (0.01-0.20) K/uL Sodium 136 (136-145) mmol/L Potassium 3.5 (3.5-5.1) mmol/L Chloride 103 (98-107) mmol/L Carbon Dioxide 21 (21-32) mmol/L Anion Gap 12 H (3-11) BUN 15 (6-23) mg/dl Creatinine 0.78 (0.6-1.2) mg/dl Est Cr Clr Drug Dosing 57.4 ml/min Est GFR ( Amer) 85.6 ml/min Est GFR (Non-Af Amer) 73.8 ml/min BUN/Creatinine Ratio 19.2 (10-20) Glucose 76 (70-99(Fasting)) mg/dl Calcium 8.6 (8.6-10.3) mg/dl Total Bilirubin 0.4 (0.2-1.0) mg/dl AST 29 (13-39) U/L ALT 15 (7-52) U/L Alkaline Phosphatase 74 (34-104) U/L Total Protein 6.9 (6.0-8.3) gm/dl Albumin 3.7 (3.4-5.0) gm/dl Globulin 3.2 (2.5-4.0) gm/dl Albumin/Globulin Ratio 1.2 (0.9-2) Lipase 1166 H (11-82) U/L SARS-CoV-2, RNA, NAAT (NEGATIVE) PG Care Time/CCT Total # of Minutes Spent Total Time Spent with Patient: Total time spent is greater than 50% in coordination of care (as documented) at patient's floor/unit and/or counseling patient: Coding Diagnoses Pancreatitis K85.90 Acute viral syndrome B34.9
[2023-04-17] MEDS ORDERED: PANTOprazole 40 MG TAB PO SCH (09:00)
--- NOTE | 2023-04-17 14:47 | Discharge Summary ---
Date of Service April 17, 2023 Admission HPI Per Admitting Provider Debbie is a 77-year-old female with a past medical history of CVA, laryngeal pharyngeal reflux, chronic cerebral ischemia, COVID, and past cholecystectomy who presented for evaluation of abdominal pain. She is found to have an elevated lipase and evidence of pancreatitis on CT. She does not use alcohol, and has a normal calcium on admission Pain started last saturday. +nausea, diarrhea x2 days, headache, vomiting with green bile. No blood/melena. Diarrhea was loose then liquid, and improved yesterday with 1 dose of immodium. Poor appetite, has not been able to eat for 3-4 days. Was around a 10yo last who had stomach problems/diarrhea. Her symptoms started a day or so after that. She has had stomach rumbling and discomfort along with this. She has no chest pain or chest pressure. No shortness of breath. No inspiratory pain. No abdominal swelling. No lower extremity swelling. No lightheadedness, dizziness, syncope, presyncope. Denies fever/chills/sweats. Feels that her diarrhea is improving today, but she continues to have some pain in her stomach. She notes that while she has not been able to eat 3 to 4 days she is actually hungry at time of presentation. She notes she did have a cholecystectomy in 1999, she presented for stones blocking her pancreas/gallbladder at that time. No problems since then. Medical History: Reviewed Medications: Reviewed. No daily medicines. Vitamins. Rarely uses lorazepam. Surgical History: Reviewed Family history: Reviewed Allergies: Reviewed Social History: No tobacco product use. Rare champagne use, none in the last month. Code Status: Full Code Admission Exam Per Admitting Provider General: A&Ox3. NAD. Cooperative. HEENT: Atraumatic, normocephalic. Vision/hearing intact Pulm: CTAB A&P. -wheezes, -rales, -rhonchi. Symmetrical chest rise. No increased work of breathing. No respiratory distress. Cardiac: RRR, -mrg. Radial pulses intact and symmetrical. Abdominal: Mild epigastric tenderness without rebound. Abdomen otherwise soft and nontender Extremities: Warm and dry Principal Diagnosis Pancreatitis Discharge Exam General: WD/WN female sitting up in bed, eating breakfast, NAD HEENT: head normocephalic, atraumatic, mm, trachea midline Resp: CTA, no w/c/r, on room air CV: RRR, no significant m/r/g, no pitting edema GI: +BS, soft, no epigastric tenderness to palpation, no rebound/guarding MSK/Neuro: no focal deficits, no slurred speech Psych: AOx3, cooperative and pleasant with care Discharge Data Allergies Allergy/AdvReac Type Severity Reaction Status Date / Time bacitracin Allergy Intermediate BAD Verified 04/13/23 19:45 SWELLING OF SKIN gramicidin D Allergy Intermediate RASH Verified 04/13/23 19:45 neomycin Allergy Intermediate BAD Verified 04/13/23 19:45 SWELLING OF SKIN polymyxin B Allergy Intermediate BAD Verified 04/13/23 19:45 SWELLING OF SKIN Sulfa (Sulfonamide Allergy Unknown CAN'T Verified 04/13/23 19:45 Antibiotics) REMEMBER Consultations 04/16/23 14:39 ED Decision to Admit Stat Ordered Studies Abdomen/Pelvis CT 04/16/23 13:53 CT SCAN OF THE ABDOMEN AND PELVIS WITH IV CONTRAST CLINICAL HISTORY: Generalized abdominal pain. Nausea and diarrhea. COMPARISON STUDY: Abdominal CT dated 04/13/2023. TECHNIQUE: Following the IV administration of 86 cc of Optiray 320, CT scan of the abdomen and pelvis is performed from the lung bases to the proximal femora. Images are reviewed in the axial, sagittal, and coronal planes. IV contrast was administered without complication. A dose lowering technique was utilized adhering to the principles of ALARA. CT DOSE: 641.32 mGy.cm FINDINGS: Lung bases: The heart is normal in size and without pericardial effusion. The lung bases are clear. Liver: The contrast-enhanced liver is normal in size, contour, and attenuation. There is mild to moderate intrahepatic biliary ductal dilatation. This is modestly increased from 04/13/2023. The hepatic veins and portal veins are patent. Gallbladder: Surgically absent noting clips in the gallbladder fossa. Spleen: Normal in size and attenuation. Pancreas: There is minimal peripancreatic infiltration and fluid. The gland enhances throughout. The duct is normal in caliber. No peripancreatic fluid collection is identified. Adrenal glands: Unremarkable. Kidneys: The contrast enhanced kidneys are normal in size and without hydronephrosis. The kidneys enhance symmetrically. Abdominal vasculature: The abdominal aorta is normal in course and caliber noting moderate to advanced atherosclerotic calcification. Bowel: There is mild to moderate sigmoid diverticulosis without CT evidence of acute diverticulitis. No bowel obstruction is seen. The appendix is well- visualized and normal. Peritoneum: There is trace free fluid in the cul-de-sac. No intraperitoneal free air is identified. Lymphadenopathy: None. Pelvic viscera: The bladder is normal as visualized. There are calcified uterine fibroids. No adnexal lesion is seen. Skeletal structures: The skeletal structures are osteopenic. There is a chronic compression deformity of L2. Mild lumbosacral spondylosis is observed. No lytic or blastic lesions are seen. IMPRESSION: 1. There is minimal peripancreatic infiltration and fluid. Correlate with clinical and laboratory findings for evidence of mild acute pancreatitis. 2. The gland enhances throughout. No peripancreatic fluid collection is seen. 3. There is [id number] intra and extrahepatic biliary ductal dilatation. This has modestly increased from 04/13/2023. Correlate with clinical and laboratory findings. 4. Additional findings as above. ACT 112: Negative or not required by law. Electronically signed by: Umair Hawkins M.D. 04/16/2023 3:04 PM Hospital Course (1) Pancreatitis: Abdominal pain 2/2 acute pancreatitis, suspected 2nd to viral illness and reported having dinner w/ neighborhood children last Saturday who were sent home from school on Saturday with similar symptoms Prodrome of diarrhea suggestive of viral illness especially with exposure to young children who had similar symptoms just prior to hers, respiratory bio fire is positive for Entero/rhinovirus. As diarrhea is improving and patient is starting to improve will defer Stool BioFire at this time. Rare alcohol use, none in the past month Is s/p cholecystectomy in 2019 CTAP on admission w/ intra/extrahepatic ductal dilation, but no transaminitis or elevated bilirubin. CT showed evidence for mild pancreatitis Lipase 1166, no leukocytosis or fever. Calcium wnl IVF, supportive care, antiemetics, pain control provided Lipase trended down on repeat 326 Diet: Clear liquid diet -> advanced to full liquid --> low fat diet without issues Patient offered to stay/further eval for causes however feeling well and wanting to go home. Discussed w/ patient regarding f/u GI at discharge for CBD dilation in the future (has seen [facility] in the past) Recommend following up/checking triglyceride levels w/ PCP in follow up as not obtained during admisison. A1c pending at time of d/c, ketones 4+ on admit UA but suspected from significant dehydration/improved w/ IVF/supportive care Lovenox SQ utilized for DVT prophylaxis while inpatient. (2) Acute viral syndrome: +rhino/enterovirus, had been having diarrhea, sick contacts in her home for supper last week diarrhea slowing, nothing further contact precautions for viral infection supportive care Total Time Total Time Spent Total Time Spent (In Minutes): 35 Discharge Plan Discharge Items Patient Disposition: Home - Self-Care Reason For Visit: ACUTE PANCREATITIS Discharge Diagnosis: Pancreatitis Goals: You have been hospitalized for an acute medical problem. During your stay at [facility], we have made an effort to correct the problem that brought you to the hospital while keeping you as comfortable as possible. Medications were used to bring your condition under control and your discharge instructions will include directions for any medications you should take after leaving the hospital. Please make sure you see your Primary Care Provider as pa rt of your follow up plan. Activity: Resume your previous activity Non-emergency contact: Primary Care Provider Call non-emergency contact if: you have any medication questions, your symptoms worsen and your pain is concerning for you Follow-up/Referrals: Luisa Schaffer MD [Primary Care Provider] - Angel Freitas Jr, MD [Physician] - Diet: Low Fat Addtl Attending Provider Instructions: You have been hospitalized for abdominal pain and found to have an elevated lipase along with findings on cat scan consistent with pancreatitis. Your liver enzymes were normal and stayed normal, however viral testing showed you were positive for rhino/enterovirus and this could be the cause of the pancreatitis given you have not been consuming any alcohol. Repeat levels have continued to improve and your diet has been advance to low fat. We would recommend continuing low fat diet for another week or so and then can resume your previous diet. Please AVOID ANY ALCOHOL during this time as this can cause these symptoms to come back on rapidly, but given suspected from viral process, hopefully you will be over this in the next couple of days. Please maintain good hand washing/hygiene to prevent spread of viral infection. You did also have noted common bile duct dilation, but your liver enzymes were normal. It is recommended to discuss with primary care about referral to gastroenterology in follow up outpatient. Please follow up with primary care in the next week to monitor your progress after discharge from the hospital. Please return to the emergency department with any worsening abdominal pain, inability to keep up with oral intake, fevers, or for any other symptoms concerning for you. It has been a pleasure being a part of the medical team providing for you while you have been in the hospital. Take care! Pending Studies at Discharge: Yes Studies:: A1c Stand-Alone Forms: My [facility] Medications and DC Order Prescriptions: Continued biotin 5 mg capsule 5 mg PO QAM cyanocobalamin (vitamin B-12) [Vitamin B-12] 1,000 mcg Tablet 3,000 mcg PO QAM cholecalciferol (vitamin D3) [Vitamin D3] 50 mcg (2,000 unit) Capsule 100 mcg PO QAM Discharge Orders: Discharge Order (Routine); Ordered 04/17/23 Ordered By: Mildred Alvarez Admission Data Admit Date/Time: 04/16/23 16:25 Attending Provider: Akila Torres Admit Provider: Mark May Primary Care Provider: Luisa Schaffer Other Providers: Mark May Other Interventions: Discharge Summary Assessment (RN) Last Done: 04/17/23 17:45 Supervising Physician Co-Signing Physician Notes PA Supervision Note: I personally saw and examined the patient. I verified all arguello points and agree with SHELBY Alvarez with the following exceptions and/or additions: S-patient feeling much improved. No further abdominal pain, is tolerating a diet, no further diarrhea. No nausea. Feels ready to go home O- Vitals reviewed Gen: AAOx3, NAD HEENT: Anicteric sclerae, EOMI CV: RRR no mgr nl S1S2 Pulm: CTAB no wcr Abd: +BS soft NT ND no masses or hernias Ext: No edema, 2+ DP pulses Skin: No rashes, warm/dry Neuro: Full strength throughout [id number]-old female here with pancreatitis likely viral induced but with some ductal dilatation seen on CT abdomen/pelvis however LFTs are all normal. Follow-up with GI as an outpatient. Stable for discharged home on low-fat diet Coding Level of Care Code 43504 INP/OBS DISCH >30 MIN Diagnoses Pancreatitis K85.90 Acute viral syndrome B34.9
[2023-04-17 21:56] LABS: Estimated Average Glucose 114 mg/dl; Hemoglobin A1C 5.6 % (4.5-5.6)
== END 2023-04-17 18:19 | disposition home or self-care (01) ==
LOC: ED 13:52 → 3E 13:52 → SUATTDRO 16:25 → 3E 18:18